=== PATIENT | female | born 1935 | race Caucasian/White ===

== ENCOUNTER 2017-12-23 07:54 | Outpatient (CLI) | payer MEDICARE ==
[2017-12-23] MEDS ORDERED: Gadobenate Dimeglumine 529 MG/1 ML (20ML VIAL) ONE (09:00)
--- NOTE | 2017-12-23 13:19 | MRI ---
CERVICAL SPINE MRI WITH AND WITHOUT CONTRAST: 12/23/2017 HISTORY: Prior neck surgery, per the patient. Chronic back pain. 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 TECHNIQUE: Multiplanar, multisequence MR imaging of the cervical spine obtained with and without contrast. FINDINGS: There is prominent degenerative change noted at the atlantoaxial interspace with dorsal degenerative pannus formation posterior to the dens. The craniocervical junction and cervicothoracic junction appear intact. C2-C3: There is disk space narrowing and disk desiccation. There is minimal disk bulge with no cent ral canal stenosis. Mild facet and uncovertebral osteophyte formation noted with no significant neur al foraminal stenosis on either side. C3-C4: There is disk space narrowing, disk desiccation, anterior osteophyte formation, and disk bulg e. This effaces the ventral thecal sac and causes a mild degree of central canal stenosis. There is facet and uncovertebral osteophyte formation bilaterally, left greater than right, with mild to mode rate right neural foraminal stenosis and severe left neural foraminal stenosis. C4-C5: There is disk space narrowing, disk desiccation, anterior osteophyte formation, and disk bulg e. This partially effaces the ventral thecal sac and leads to a mild degree of central canal stenosi s. There is bilateral facet and uncovertebral osteophyte formation, left greater than right, with mo derate left and mild right neural foraminal stenosis. C5-C6: Disk space narrowing, disk desiccation, anterior osteophyte formation, and disk osteophyte co mplex is present with effacement of the ventral thecal sac and mild to moderate central canal stenosi s. Bilateral facet and uncovertebral osteophyte formation noted, left greater than right, with moder ate to severe left and mild right neural foraminal stenosis. C6-C7: Disk space narrowing, disk desiccation, anterior osteophyte formation, and disk bulge present . This effaces the ventral thecal sac and causes a mild degree of central canal stenosis. Bilateral facet and uncovertebral osteophyte formation noted with moderate to severe neural foraminal stenosis , left greater than right. C7-T1: Disk space narrowing, disk desiccation, and disk bulge present. Bilateral facet hypertrophy present with mild to moderate bilateral neural foraminal stenosis. Partially visualized increased STIR signal noted within the T2 and T3 vertebral bodies, better evalua tayo on thoracic spine imaging. This edematous change within the vertebral bodies demonstrates enhanc ement within the T2 and T3 vertebral bodies. The intervening intervertebral disk at the T2-T3 level does not demonstrate internal edematous change or enhancement and, thus, this likely represents edema and enhancement on the basis of advanced degenerative change. Clinical correlation would be require d to exclude the possibility of osteomyelitis. Metastatic disease unlikely but not excluded. The po st contrast imaging is unremarkable within the cervical region. IMPRESSION: 1. Multilevel degenerative change seen within the cervical spine with multilevel central canal and n eural foraminal stenosis, as detailed above. 2. Edema and enhancement within the T2 and T3 vertebral bodies, incompletely assessed on this exam. Please refer to thoracic spine MRI for full characterization. POS: [facility]
--- NOTE | 2017-12-23 13:35 | RAD ---
CERVICAL SPINE THREE VIEWS: HISTORY: An 82-year-old female with a history of chronic neck pain with spondylosis with myelopathy. FINDINGS: Exam includes standing flexion and extension lateral views. C7-T1 is obscured partially. There is very severe disk osteophytosis and disk space narrowing at C3- C4, C4-C5, C5-C6, and C6-C7, somewhat limited in range of motion between flexion and extension. No s ignificant abnormal translation. No prevertebral soft tissue swelling. Markedly severe spondylosis. No abnormal translation between flexion and extension, with somewhat limited movement. POS: [facility]
--- NOTE | 2017-12-23 13:58 | MRI ---
MRI LUMBAR SPINE: HISTORY: An 82-year-old with a history of back pain. TECHNIQUE: The patient received 10 mL of MultiHance, given IV. Multiplanar, multisequence pre and post contrast enhanced MR images of the lumbar spine obtained. FINDINGS: The images demonstrate susceptibility artifact in the inferior vena cava, compatible with an inferior vena cava filter. T12-L1: There is a broad-based disk bulge. There is bilateral facet hypertrophy seen. The central canal and neural foramen are patent. L1-L2: There is some disk desiccation seen. There is a broad-based disk bulge with bilateral facet hypertrophy. The central canal and neural foramen are patent. L2-L3: Disk desiccation is seen. There is a broad-based disk bulge with bilateral facet hypertrophy . This results in a moderate degree of left L2-L3 lateral recess stenosis. The left L2-L3 neural for amen also demonstrates a moderate degree of stenosis. Mild to moderate right-sided neural foraminal narrowing is seen at L2-L3. L3-L4: Disk desiccation is seen. There is a broad-based disk bulge with bilateral facet hypertrophy , resulting in a moderate degree of central and lateral recess stenosis. There is moderate left and mild right-sided neural foraminal narrowing seen. L4-L5: Disk desiccation is seen. There is a broad-based disk bulge with bilateral facet and ligamen ha flavum hypertrophy. This results in a mild to moderate degree of central and lateral recess sten osis. There is severe left and moderate right-sided neural foraminal narrowing seen. L5-S1: Disk desiccation is seen. There is a broad-based disk bulge with bilateral facet hypertrophy . No significant degree of central stenosis is seen. There is moderate right and moderate to severe left-sided neural foraminal narrowing seen. IMPRESSION: Left L4-L5 and L5-S1 neural foraminal narrowing. Lesser degrees of central and lateral recess stenos is also present. POS: [facility]
--- NOTE | 2017-12-23 14:03 | MRI ---
MRI THORACIC SPINE WITH AND WITHOUT CONTRAST: HISTORY: PRE AND POST CONTRAST ENHANCED MR IMAGES OF THE THORACIC SPINE: M47.12 and M51.36 TECHNIQUE: Multiplanar, multisequence pre and post contrast enhanced MR images of the thoracic spine obtained. FINDINGS: Images demonstrate no evidence of spinal cord masses or lesions. There are areas of signal abnormality on T1 and T2 weighted sequences, involving the T2 and T3 verteb lashell, extending into the pedicles. These areas of signal abnormality demonstrate contrast enhancement on the fat saturated sequences. These may represent T2 and T3 metastatic lesions. No significant e vidence of central spinal stenosis seen. There is some signal heterogeneity in the lower thoracic re gion due to the [place] type inferior vena caval filter. IMPRESSION: Area of signal abnormality in the T2 and T3 vertebrae, extending into the pedicles, especially on the left. This may represent metastatic disease to these two vertebral bodies. Other possibilities cou ld include osteomyelitis. No definite evidence of fluid is seen in the intervertebral disk space. N o significant evidence of perivertebral abscesses or significant cellulitis is seen. POS: [facility]
== END 2017-12-23 07:55 | disposition home or self-care (01) ==
LOC: SCSMRI 07:54
PROVIDERS: ATTEND Neurological Surgery
DX: M51.86 Other intervertebral disc disorders, lumbar region (principal); M51.84 Other intervertebral disc disorders, thoracic region; M47.12 Other spondylosis with myelopathy, cervical region; M48.061 Spinal stenosis, lumbar region without neurogenic claudication; M99.53 Intervertebral disc stenosis of neural canal of lumbar region; M99.54 Intervertebral disc stenosis of neural canal of sacral region
CPT/HCPCS: 72040; 72156; 72157; 72158; 82565